=== PATIENT | female | born 2000 | race Caucasian/White ===

== ENCOUNTER 2020-11-28 11:08 | Emergency (ER) | payer BC, MEDICAID, SELFPAY ==
[2020-11-28 11:12] VITALS: BP 133/66; PULSE 115; RESP 18; TEMP 36.9; O2SAT 97; BMI 33.3
--- NOTE | 2020-11-28 11:26 | W.ED.SKABFB ---
HPI - Skin/Abscess/Foreign Bdy General: Chief complaint: Skin/Abscess/Foreign Body Stated complaint: poss staph infection L side Time Seen by Provider: 11/28/20 11:17 History of Present Illness: HPI narrative: Abscess to her left thigh x 4 days, worsening. She first noticed a small boil and then it has progressively worsened. She states that she has had similar in the past but they usually drain spontaneously but this is not doing that so she is here to be seen. She denies any fever. complaint: abscess/boil Onset (ago): day(s) (4) Location: LLE Severity: moderate Quality: stabbing Pain Consistency: constant Relieving factors: none Exacerbating factors: palpation Context: none Associated symptoms: Deny arthralgias, chills, cough, fever(s), itching, myalgias, nausea, rigidity, short of breath or vomiting Treatments prior to arrival: none Review of Systems General: Reports: 10 or more systems reviewed and unremarkable except in HPI and below Const: Denies: fever(s) or chills Eyes: Denies: change in vision or blurry vision ENMT: Denies: throat pain, enlarged tonsils, odynophagia, hoarseness, mouth pain or swelling of lips/tongue Card: Denies: palpitations, irregular heart rhythm, edema or swelling of feet/ankles Resp: Denies: dyspnea, productive cough or non-productive cough GI: Denies: nausea or vomiting : Denies: flank pain, difficulty voiding, dysuria, urinary frequency, urinary urgency or urinary hesitancy Musc: Denies: neck pain, back pain or extremity swelling Skin/Breast: Reports: rash, erythema and skin tenderness; Denies: pruritus Neuro: Denies: headache(s), numbness in extremities or weakness in extremities Endo: Denies: polyuria, polydipsia or tired all the time PFSH ED PFSH: Medical History (Reviewed 11/28/20 @ 13:04 by Lamar [place]ley [place] [facility] [facility] [place] Drug abuse, amphetamine type Surgical History (Reviewed 11/28/20 @ 13:04 by Lamar Hawley MD, [facility] [place] History of tonsillectomy and adenoidectomy Hx of wisdom tooth extraction Family History (Reviewed 11/28/20 @ 13:04 by Lamar Hawley MD, [facility] [place] Father Diabetes Hypertension Other Cancer Denies family history of CAD (coronary artery disease) Clotting disorder Dementia Hyperlipidemia Psychiatric illness Chronic kidney disease (CKD) Suicide Anesthesia complication Bleeding disorder Family history of premature coronary artery disease Lung disease Stroke Social History (Reviewed 11/28/20 @ 13:04 by Lamar Hawley MD, [facility] [place] Smoking and tobacco status: current every day smoker cigarettes [ Other cigarette details: 1 cigarette per day; smoking for 1 year ] Quit status (tobacco): considering quitting Second hand smoke exposure: No Alcohol intake: never Current gender identity: Female Female Reproductive History: Date of last menstrual period: 11/03/19 Para: 2 Spontaneous abortions: No Physical Exam Const: COMMON NORMALS: no acute distress, average body habitus, patient oriented x3, no limitations, healthy appearing, alert and well nourished HENMT: COMMON NORMALS: normocephalic, atraumatic and moist oral mucous membranes HEAD & SCALP: normocephalic and atraumatic Neck/C-Spine: COMMON NORMALS: no meningeal signs and no JVD Resp: COMMON NORMALS: normal respiratory effort, No retractions, No use of accessory muscles, clear to auscultation bilaterally and percussion normal AUSCULTATION: clear to auscultation bilaterally PERCUSSION: percussion normal Cardio: COMMON NORMALS: no JVD, regular rate, regular rhythm, S1 normal heart sound present, S2 normal heart sound present, No gallops present (Cardio), No clicks present (Cardio), No murmurs present (Cardio), No rub (Cardio) and Peripheral pulses 2+ throughout RATE: regular rate RHYTHM: regular rhythm HEART SOUNDS: S1 normal heart sound present and S2 normal heart sound present PERIPHERAL PULSES: Peripheral pulses 2+ throughout GI: COMMON NORMALS: Normal to inspection, nondistended, normoactive bowel sounds present, Soft to palpation, non-tender, No hepatosplenomegaly present, no masses and no bruits PALPATION: Yes Soft to palpation and Yes No hepatosplenomegaly present Extremity: COMMON NORMALS: normal to inspection, full ROM, capillary refill normal, no calf tenderness and no pedal edema Neuro: COMMON NORMALS: patient oriented x3 SENSORIUM/ORIENTATION: Yes alert MENINGEAL SIGNS: Yes no meningeal signs Skin: COMMON NORMALS: no rashes or lesions noted, no wounds, turgor normal, no jaundice, no petechiae and no mottling GENERAL SKIN EXAM: no rashes or lesions noted, turgor normal, erythema (10 x 10 cm area on her left upper thigh, laterally), fluctuance and induration (same as the erythema) Procedures Abscess I/D Site: lower extremity Side (if applicable): left Sedation/analgesia: none Local Anesthetic: lidocaine 2% and with epi Amount of anesthesia used (mL): 5 Technique: incised with #11 blade Amount of fluid expressed (mL): 10 Irrigation: No Packing used?: iodoform Course Vital Signs: Vital signs: Vital Signs Temperature 98.4 F 11/28/20 11:12 Pulse Rate 115 H 11/28/20 11:12 Respiratory Rate 18 11/28/20 11:12 Blood Pressure 133/66 11/28/20 11:12 Pulse Oximetry 97 11/28/20 11:12 MDM - Skin/Abscess/Foreign Bdy MDM Narrative: Medical decision making narrative: 20-year-old female with a left thigh abscess that required an incision and drainage. The wound was packed with iodoform gauze. Because of the extent of the erythema and induration she is advised to come to the emergency department in 2 days for removal of the iodoform pack and evaluation of the wound. She was given a dose of intramuscular ceftriaxone in the emergency department and discharged home with a prescription for Bactrim. A wound culture was obtained. Medical Records: Attestation: I reviewed the patient's medical records. Discharge Plan Discharge Patient Disposition: Home Clinical Impression: Abscess of left thigh Cellulitis Qualifiers: Site of cellulitis: extremity Site of cellulitis of extremity: lower extremity Laterality: left Qualified Code(s): L03.116 - Cellulitis of left lower limb Condition: Stable Prescriptions: New Bactrim DS 800-160 mg tablet 1 tab PO BID 7 Days Qty: 14 RF: 0 Continued gabapentin 300 mg capsule 300 mg PO BID PRN (Reason: Pain) RF: 0 Discharge Orders: Discharge ED (Routine); Ordered 11/28/20 Ordered By: Lamar Hawley Referrals: Janeth Hallman FNP [Primary Care Provider] - 1-3 days Discharge Diet: Usual diet Discharge Activity: Resume usual activity Patient Instructions: Abscess Incision and Drainage (ED), Abscess (ED) Activity Restrictions/Additional Instructions: Return for any new or worsening symptoms. Apply a warm compress to the area for 5 minutes at the time, 3 times a day. Return to the emergency department in 2 days so we can check your wound out and remove the dressing. I am concerned about the wound and do not want it to get worse. Take the antibiotic as prescribed. Take Tylenol or ibuprofen as needed for pain. Coding Level of Care Code ED [facility] Specialist for [facility] Becerra Exam Comprehensive
[2020-11-28] MEDS: cefTRIAXone 1,000 MG in lidocaine 1% 2.1 ML 2.1 MG IM (12:14)
== END 2020-11-28 12:18 | disposition home or self-care (01) ==
PROVIDERS: Emergency Provider Family Medicine; PCP Nurse Practitioner
DX: L02.416 Cutaneous abscess of left lower limb (principal); L03.116 Cellulitis of left lower limb; F17.210 Nicotine dependence, cigarettes, uncomplicated
CPT/HCPCS: 10060; 12345; 87070; 87075; 87077; 87186; 87205; 99281; 99283; J0696